=== PATIENT | female | born 2005 | race Caucasian/White ===

== ENCOUNTER 2025-08-29 21:47 | Emergency (ER) | payer BC, SELFPAY ==
[2025-08-29 22:53] VITALS: BP 149/94; PULSE 106; RESP 18; TEMP 38.1; O2SAT 98
--- NOTE | 2025-08-29 23:47 | XR_ITS ---
EXAMINATION: AP chest single view TECHNIQUE: AP portable upright chest single view Date and time: August 30, 2025, 0009 hours INDICATION: Chest pain shortness of breath sepsis alert today FINDINGS: Normal heart size Lungs are clear. Intact osseous structures IMPRESSION: No active disease
[2025-08-30 00:15] VITALS: BP 128/87; PULSE 119; RESP 19; TEMP 39.3; O2SAT 96
[2025-08-30 00:16] LABS: Lactate (Lactic Acid) 1.5 mMol/L (0.4-2.0)
[2025-08-30 00:18] LABS: Collection Type, Urine Clean Catch
[2025-08-30 00:24] VITALS: TEMP 39.3
[2025-08-30] MEDS: ACETAMINOPHEN 500 MG TABLET 1000 MG PO (00:24)
[2025-08-30 00:27] LABS: Bacteria,Urine 1+; Bilirubin,Urine Negative (Negative); Blood,Urine Negative (Negative); Calcium Oxalate Crystals,Urine Rare; Clarity,Urine Clear (Clear/Hazy); Color,Urine Lt-Yellow (Lt Yel-Yel); Glucose, Urine Negative (Negative); Ketones,Urine Negative (Negative); Leukocyte Esterase,Urine Negative (Negative); Nitrite,Urine Negative (Negative); PH,Urine 5.5 (5.0-7.0); Protein,Urine Negative (Neg - Trace); RBC,Urine 1 /hpf (0-3); Specific Gravity,Urine 1.026 (1.001-1.035); Squamous Epithelial Cell,Urine 1 /hpf (0-5); Urobilinogen,Urine Negative mg/dL (0.0-1.0); WBC,Urine 2 /hpf (0-5)
[2025-08-30 00:27] LABS: Basophils # (Auto) 0.0 Thou/mm3 (0.0-0.2); Basophils % (Auto) 0 % (0-2.5); Eosinophils # (Auto) 0.0 Thou/mm3 (0.0-0.5); Eosinophils % (Auto) 0 % (0-10); Hematocrit 40.9 % (36.0-46.0); Hemoglobin 13.5 g/dL (12.0-16.0); Immature Granulocytes Auto 0.06 Thou/mm3 (0.00-0.00); Lymphocytes # (Auto) 1.5 Thou/mm3 (1.0-4.8); Lymphocytes % (Auto) 19 % (10-50); Mean Corpuscular HGB Conc 33.0 g/dl (31.0-37.0); Mean Corpuscular Hemoglobin 28.7 pg (25.0-35.0); Mean Corpuscular Volume 87 fL (80-100); Monocytes # (Auto) 0.9 Thou/mm3 (0.0-0.8); Monocytes % (Auto) 12 % (0-12); Neutrophils # (Auto) 5.3 Thou/mm3 (1.8-7.7); Neutrophils % (Auto) 68 % (37-80); Nucleated Red Blood Cell # 0.00 Thou/mm3 (0.00-0.00); Nucleated Red Blood Cell % 0 /100 WBC (0); Platelet Count 280 Thou/mm3 (140-440); RDW Standard Deviation 41.1 fL (36.4-46.3); Red Blood Count 4.71 Miln/mm3 (4.00-5.20); White Blood Count 7.7 Thou/mm3 (3.6-11.0)
[2025-08-30 00:28] LABS: Culture Indicated,Urine Yes
[2025-08-30 00:31] LABS: D-Dimer 266 ng/mL (<600)
[2025-08-30 00:47] LABS: Alanine Aminotransferase 55 U/L (10-49); Albumin, Serum 4.7 gm/dL (3.5-5.0); Albumin/Globulin Ratio 1.6 (1.2-2.2); Alkaline Phosphatase 55 U/L (46-116); Anion Gap 10 (7-16); Aspartate Amino Transferase 38 U/L (0-34); BUN/Creatinine Ratio 9 Ratio (12-20); Bilirubin,Total 0.2 mg/dL (0.3-1.2); Blood Urea Nitrogen 8 mg/dL (9-23); Calcium 9.2 mg/dL (8.3-10.6); Calcium (Corrected) 9.2 mg/dL (8.5-10.1); Carbon Dioxide 23.3 mMol/L (20.0-31.0); Chloride 106 mMol/L (98-107); Creatinine (Component) 0.9 mg/dL (0.6-1.3); Globulin 2.9 gm/dL (2.3-3.5); Glucose 109 mg/dL (74-106); Osmolality,Calculated 276 (275-295); Potassium 4.1 mMol/L (3.4-5.1); Procalcitonin 0.08 ng/ml (0.0-0.49); Sodium 139 mMol/L (136-145); Total Protein 7.6 gm/dL (5.7-8.2); eGFR > 60 See Note
[2025-08-30 01:04] LABS: INR 1.0 (0.9-1.3); Partial Thromboplastin Time 29.3 Seconds (22.0-36.0); Prothrombin Time 10.5 Seconds (9.0-12.2)
[2025-08-30 01:24] VITALS: TEMP 38.1
[2025-08-30 01:36] VITALS: BP 105/82; PULSE 116; RESP 19; TEMP 38.1; O2SAT 95
--- NOTE | 2025-08-30 01:45 | PD.EDURI ---
Upper Respiratory Inf. RME/HPI General Chief Complaint: Flu Like Symptoms Stated Complaint: FEVER 1 1/2 MONTH, COUGHING,CP, DIF BREATHING Time Seen by Provider: 08/29/25 22:03 Source: patient and family Arrival date/time: 08/29/25 21:47 Mode of arrival: ambulatory Limitations: no limitations RME / HPI RME / HPI Narrative: Patient is a 20-year-old female who arrives to the ED today with complaints of intermittent fevers, cough and intermittent chest pain with shortness of breath events off-and-on for the past week. Patient states she has been coughing for nearly a month. Patient states the coughing occurred unnoticed until approximately 1 week ago when the fever and shortness of breath events occurred. At arrival, patient was hypertensive, tachycardic and a temperature of 100.5. Related Data Previous Rx's ?Medication ?Instructions ?Recorded ibuprofen 800 mg tablet 800 mg PO TID PRN pain #30 tabs 01/13/24 acetaminophen 500 mg tablet 500 mg PO Q4H PRN fever or pain 08/30/25 (Tylenol Extra Strength) #30 tabs ibuprofen 600 mg tablet (IBU) 600 mg PO Q6H PRN fever or pain 08/30/25 #20 tabs ondansetron 4 mg disintegrating 4 mg PO Q6H PRN nausea and 08/30/25 tablet vomiting #14 tabs oseltamivir 75 mg capsule (Tamiflu) 75 mg PO BID 5 days #10 caps 08/30/25 Allergies Allergy/AdvReac Type Severity Reaction Status Date / Time No Known Allergies Allergy Verified 08/29/25 21:49 Review of Systems Review of Systems Systems Reviewed: All systems reviewed, normal except as documented Past Medical History Past Medical History CARDIAC: Negative Congestive Heart Failure RESPIRATORY: Negative Chronic Obstructive Pulmonary Disease (COPD) GENITOURINARY: Negative Renal Disease ENDOCRINE: Negative Diabetes Mellitus Type 1 or Diabetes Mellitus Type 2 Social History SMOKING STATUS: Never smoker ED Exam General Limitations: Present no limitations General appearance: Present alert and in distress (Patient looks mild to moderately toxic at time of evaluation.) Head Head exam: Present atraumatic Eye Eye exam: Present normal appearance, PERRL and EOMI ENT ENT exam: Present normal exam, normal oropharynx and mucous membranes moist Neck Neck exam: Present normal inspection, full ROM and trachea midline Chest Chest inspection: Present normal inspection and symmetric chest wall rise Respiratory Respiratory exam: Present normal lung sounds bilaterally and other (Unremarkable auscultation of bilateral lung hanson.) Cardiovascular Cardiovascular exam: Present regular rate, normal rhythm and normal heart sounds Abdominal Exam Abdominal exam: Present soft and normal bowel sounds Extremities Exam Extremities exam: Present normal inspection and full ROM Back Exam Back exam: Present normal inspection and full ROM Neurological Exam Neurological exam: Present alert, oriented X3 and CN II-XII intact Psychiatric Psychiatric exam: Present normal affect and normal mood Skin Skin exam: Present warm, dry, intact and normal color Course Quality Measures none Orders Category Date Time Status Bedside Blood Glucose NOW Care 08/29/25 23:47 Active Bedside COVID-19 Antigen Test NOW Care 08/30/25 00:00 Active Bedside Influenza A&B Antigen Test NOW Care 08/30/25 00:00 Completed IV [Insert IV] NOW Care 08/29/25 23:19 Active Insert IV NOW Care 08/29/25 23:47 Completed XR chest 1V SEPSIS PROTOCOL Stat Exams 08/29/25 23:47 Taken Blood Culture (Lab) Stat Lab 08/29/25 23:54 Received CBC Stat Lab 08/29/25 23:59 Completed Comprehensive Metabolic Panel Stat Lab 08/29/25 23:59 Completed D-Dimer Stat Lab 08/29/25 23:59 Completed Lactate (Lactic Acid) Stat Lab 08/29/25 23:59 Completed Partial Thromboplastin Time Stat Lab 08/29/25 23:59 Completed Procalcitonin Stat Lab 08/29/25 23:59 Completed Prothrombin Time with INR Stat Lab 08/29/25 23:59 Completed UA, C/S IF [Urinalysis, C/S if Indicated] Stat Lab 08/29/25 23:49 Completed Urine Culture Stat Lab 08/29/25 23:49 Received Acetaminophen Tab [Tylenol ES Tab] Med 08/30/25 00:18 Discontinued 1,000 mg PO X1 ONE EKG (RT) Stat RT 08/29/25 23:47 Stop Req As noted above Vital Signs Vital signs: Vital Signs Temperature 100.5 F H 08/29/25 22:53 Pulse Rate 106 H 08/29/25 22:53 Respiratory Rate 18 08/29/25 22:53 Blood Pressure 149/94 H 08/29/25 22:53 Pulse Oximetry (%) 98 08/29/25 22:53 Oxygen Delivery Method Room Air 08/29/25 22:53 As noted above Upper Respiratory Infection MDM Narrative MDM Narrative:: All studies performed the ED were evaluated by me personally. Serum studies unremarkable for any systemic concerns as well as urinalysis. Chest x-ray is unremarkable for any consolidation or intrapulmonary concerns. Swab studies confirmed an influenza A diagnosis. Patient will be sent home with supportive medication and advised to utilize medication as directed as well as good hydration and healthy nutrition. Patient data External records reviewed:: [facility] previous records Clinical information provided by:: patient Social determinants that could affect healthcare access:: none Patient has the following chronic illnesses:: None How is presenting disease/condition affected by chronic disease/condition?: no chronic disease Evaluation data The following diagnostics were reviewed and interpreted by me:: lab results, radiology exam(s) and EKG tracing(s) Lab and/or radiology exams considered but not ordered:: None Interpretation Summary: Influenza A Medications / Prescriptions Medications or Prescriptions considered but not ordered:: None Medication administrations:: Medication Administration History Discontinued Medications Acetaminophen (Acetaminophen 500 Mg Tablet) 1,000 mg PO X1 ONE Stop: 08/30/25 00:19 Last Admin: 08/30/25 00:24 Dose: 1,000 mg Documented By: CB As noted above Consultations Consultation(s) initiated? (list below): No Diagnosis Upper Respiratory Differential Diagnosis: upper respiratory infection, viral infection, bronchitis and influenza Most likely diagnosis given after review of the tests above:: Influenza A Admission Indicated Admission indicated?: not indicated Explain why admission is indicated or not indicated:: Unwarranted Admission Request Was there a request for admission?: No Disposition Plan Disposition Plan: Discharge Discharge Attestation Discharge Attestation: The patient and all family members were given an opportunity to ask questions and understood the discharge instructions. Discharge instructions specifically effects, indications for sooner follow up or return to the emergency department, and the expected course of current diagnosis. Patient condition: Stable Discharge Plan Plan Patient Disposition: HOME (Self Care) Prescriptions/Referrals Prescriptions/Med Rec: New acetaminophen [Tylenol Extra Strength] 500 mg tablet 500 mg PO Q4H PRN (Reason: fever or pain) Qty: 30 0RF ibuprofen [IBU] 600 mg tablet 600 mg PO Q6H PRN (Reason: fever or pain) Qty: 20 0RF oseltamivir [Tamiflu] 75 mg capsule 75 mg PO BID 5 Days Qty: 10 0RF ondansetron 4 mg tablet,disintegrating 4 mg PO Q6H PRN (Reason: nausea and vomiting) Qty: 14 0RF No Action ibuprofen 800 mg tablet 800 mg PO TID PRN (Reason: pain) Qty: 30 0RF Referrals: No Primary/Family,Physician [Primary Care Provider] - In 1 week Problem List Clinical Impression: Influenza Patient/Caregiver Discharge Instructions Education Materials: The Flu (Influenza) Additional Instructions: Advise utilizing splint medication as needed for symptomatic relief. Good hydration and healthy nutrition throughout. Print Language: Yakut Stand Alone Forms: Terri Award Info., Patient Portal Info Letter
== END 2025-08-30 01:59 | disposition home or self-care (01) ==
PROVIDERS: Emergency Provider Emergency Medicine
DX: J10.1 Influenza due to other identified influenza virus with other respiratory manifestations (principal)
CPT/HCPCS: 36415; 71045; 80053; 81001; 83605; 84145; 85025; 85379; 85610; 85730; 87040; 87086; 87502; 87635; 99283; A9270